=== PATIENT | female | born 2000 | race Caucasian/White ===

== ENCOUNTER 2022-12-27 14:56 | Emergency (ER) | payer OTHER ==
[~2022-12-27] VITALS: Ht 167.6 cm; Wt 70.8 kg
[2022-12-27] MEDS ORDERED: ONDANSETRON ODT8 MG PO (17:37)
== END 2022-12-27 17:51 | disposition home or self-care (01) ==
LOC: ER 14:56
DX: O21.0 Mild hyperemesis gravidarum (principal); Z3A.08 8 weeks gestation of pregnancy

== ENCOUNTER 2023-02-08 08:46 | Emergency (ER) | payer OTHER ==
[~2023-02-08] VITALS: Ht 167.6 cm; Wt 73.0 kg
[~2023-02-08 08:46] MED LIST: ONDANSETRON ODT8 MG PO
[2023-02-08] MEDS ORDERED: ONDANSETRON ODT4 MG PO (09:04)
== END 2023-02-08 15:01 | disposition home or self-care (01) ==
LOC: ER 08:46
DX: O21.8 Other vomiting complicating pregnancy (principal); Z3A.13 13 weeks gestation of pregnancy

== ENCOUNTER 2023-02-18 14:33 | Outpatient (CLI) | payer OTHER ==
[~2023-02-18 14:33] MED LIST changes: +ONDANSETRON ODT4 MG PO
== END 2023-02-18 15:45 | disposition home or self-care (01) ==
LOC: PRENATAL 14:33
PROVIDERS: ATTEND Obstetrics & Gynecology Maternal & Fetal Medicine
DX: O35.9XX0 Maternal care for (suspected) fetal abnormality and damage, unspecified, not applicable or unspecified (principal); O35.3XX0 Maternal care for (suspected) damage to fetus from viral disease in mother, not applicable or unspecified; Z3A.16 16 weeks gestation of pregnancy

== ENCOUNTER 2023-03-18 14:43 | Outpatient (CLI) | payer OTHER | END 2023-03-18 16:47 | disposition home or self-care (01) | LOC: PRENATAL 14:43 | PROVIDERS: ATTEND Obstetrics & Gynecology Maternal & Fetal Medicine | DX: O35.9XX0 Maternal care for (suspected) fetal abnormality and damage, unspecified, not applicable or unspecified (principal); O35.3XX0 Maternal care for (suspected) damage to fetus from viral disease in mother, not applicable or unspecified; Z3A.20 20 weeks gestation of pregnancy ==

== ENCOUNTER 2023-04-03 07:10 | Emergency (ER) | payer OTHER ==
[~2023-04-03] VITALS: Ht 152.4 cm; Wt 76.2 kg
[2023-04-03] MEDS ORDERED: ZITHROMAX500 MG PO (13:22)
== END 2023-04-03 13:39 | disposition home or self-care (01) ==
LOC: ER 07:10
DX: O21.9 Vomiting of pregnancy, unspecified (principal); Z3A.24 24 weeks gestation of pregnancy; R53.81 Other malaise; J06.9 Acute upper respiratory infection, unspecified; E16.1 Other hypoglycemia; Z20.822 Contact with and (suspected) exposure to COVID-19

== ENCOUNTER 2023-05-06 10:23 | Outpatient (CLI) | payer OTHER ==
[~2023-05-06 10:23] MED LIST changes: +ZITHROMAX500 MG PO
[2023-05-06] MEDS ORDERED: PRENATAL TABLE1 EAC1 PO (13:14)
[2023-05-06] MEDS ORDERED: BUPAP 50 MG-301 EACH PO (13:15)
== END 2023-05-07 10:30 | disposition home or self-care (01) ==
LOC: OBS/DEL 10:23
PROVIDERS: ATTEND Obstetrics & Gynecology
DX: O36.8120 Decreased fetal movements, second trimester, not applicable or unspecified (principal); O47.02 False labor before 37 completed weeks of gestation, second trimester; Z3A.27 27 weeks gestation of pregnancy; E16.1 Other hypoglycemia

== ENCOUNTER 2023-06-13 15:23 | Outpatient (CLI) | payer OTHER ==
[~2023-06-13 15:23] MED LIST changes: +BUPAP 50 MG-301 EACH PO; +PRENATAL TABLE1 EAC1 PO
== END 2023-06-13 16:59 | disposition home or self-care (01) ==
LOC: PRENATAL 15:23
PROVIDERS: ATTEND Obstetrics & Gynecology Maternal & Fetal Medicine
DX: O26.849 Uterine size-date discrepancy, unspecified trimester (principal); O36.8199 Decreased fetal movements, unspecified trimester, other fetus; O99.343 Other mental disorders complicating pregnancy, third trimester; Z3A.32 32 weeks gestation of pregnancy

== ENCOUNTER 2023-07-28 10:46 | Inpatient (IN) | payer OTHER ==
[~2023-07-28] VITALS: Ht 167.6 cm; Wt 3.6 kg
== END 2023-07-31 14:29 | disposition home or self-care (01) | DRG 788 ==
LOC: OBS/DEL 10:46 → OB/GYN 11:36 → LDR 11:36 → OB/GYN 21:49
PROVIDERS: Obstetrics & Gynecology; ADMIT Obstetrics & Gynecology; ATTEND Obstetrics & Gynecology
PROC: 3E033VJ Introduction of Other Hormone into Peripheral Vein, Percutaneous Approach (ICD-10-PCS; 2023-07-28)
PROC: 3E0P7VZ Introduction of Hormone into Female Reproductive, Via Natural or Artificial Opening (ICD-10-PCS; 2023-07-28)
PROC: 4A1HXCZ Monitoring of Products of Conception, Cardiac Rate, External Approach (ICD-10-PCS; 2023-07-28)
PROC: 10D00Z1 Extraction of Products of Conception, Low, Open Approach (ICD-10-PCS; principal; 2023-07-28 19:00)
DX: O61.0 Failed medical induction of labor (principal); O42.12 Full-term premature rupture of membranes, onset of labor more than 24 hours following rupture; Z3A.38 38 weeks gestation of pregnancy; Z37.0 Single live birth; Z20.822 Contact with and (suspected) exposure to COVID-19

== ENCOUNTER 2025-04-23 12:06 | Outpatient (CLI) | payer OTHER | END 2025-04-23 12:07 | disposition home or self-care (01) | LOC: PRENATAL 12:06 | PROVIDERS: ATTEND Obstetrics & Gynecology Maternal & Fetal Medicine | DX: O44.00 Complete placenta previa NOS or without hemorrhage, unspecified trimester (principal); Z3A.22 22 weeks gestation of pregnancy ==

== ENCOUNTER 2025-07-06 11:21 | Outpatient (CLI) | payer OTHER | END 2025-07-06 11:22 | disposition home or self-care (01) | LOC: PRENATAL 11:21 | PROVIDERS: ATTEND Obstetrics & Gynecology Maternal & Fetal Medicine | DX: O44.00 Complete placenta previa NOS or without hemorrhage, unspecified trimester (principal); Z3A.33 33 weeks gestation of pregnancy ==

== ENCOUNTER 2025-08-22 12:06 | Inpatient (IN) | payer OTHER ==
[~2025-08-22] VITALS: Ht 167.6 cm; Wt 81.2 kg
[2025-08-22 11:51] VITALS: BP 106/72
[2025-08-22] MEDS ORDERED: RINGERS SOLUTION,LACTATED 1,000 ML IV SCH ×2 (12:15→21:00)
[2025-08-22] MEDS ORDERED: CEFAZOLIN SODIUM 1,000 MG VIAL IV SCH (12:30)
[2025-08-22 13:17] LABS: URINE APPEARANCE Clear; URINE BILIRRUBIN Negative (NEGATIVE); URINE BLOOD Negative; URINE COLOR Yellow; URINE GLUCOSE Negative (NEGATIVE); URINE KETONE Negative (NEGATIVE); URINE LEUKOCYTE Negative; URINE NITRATE Negative; URINE PROTEIN Trace (NEGATIVE); URINE UROBILINOGEN 1.0 E.U./dl
[2025-08-22 13:18] LABS: BASO % 0.2 % (0.1-1.2); EOS # 0.03 (0.04-0.54); EOS % 0.3 % (0.7-7.0); LYMPH # 2.33 (1.18-3.74); LYMPH % 26.8 % (19.3-53.1); MEAN PLATELET VOLUME 10.20 fl (9.4-12.4); MONO # 0.49 (0.24-0.82); MONO % 5.6 % (4.7-12.5); NEUT # 5.78 (1.56-6.13); NEUT % 66.8 % (34.0-71.1); RED CELL DISTRIBUTION WIDTH 14.0 % (11.6-14.4)
[2025-08-22 13:21] LABS: URINE BACTERIA 1379.7 uL (0.0-1933); URINE EPITHELIAL CELLS 85.0 uL (0.0-38.8); URINE RBC 8.2 uL (0.0-20.8); URINE WBC 14.1 uL (0.0-23.2)
[2025-08-22 13:43] LABS: INR 1.03
[2025-08-22 13:48] LABS: URINE CAST 0.29 uL (0.0-1.40)
[2025-08-22 15:20] VITALS: BP 110/73; O2SAT 97
[2025-08-22] MEDS ORDERED: OXYTOCIN 10 UNITS/ML VIAL ONE (18:54)
[2025-08-22] MEDS ORDERED: ERYTHROMYCIN BASE OPHT 1GM EACH TUBE OP ONE (18:54)
[2025-08-22] MEDS ORDERED: KETOROLAC TROMETHAMINE 60 MG VIAL IM STA (20:53)
[2025-08-22] MEDS ORDERED: OXYTOCIN 1,000 ML IV SCH (21:00)
[2025-08-22] MEDS ORDERED: MORPHINE SULFATE 4 MG/ML CARTRIDGE IV PRN (21:00)
[2025-08-22] MEDS ORDERED: CHLORHEXIDINE GLUCONATE 120 ML BOTTLE TP SCH (21:00)
[2025-08-23 00:06] LABS: BASO % 0.1 % (0.1-1.2); EOS # 0.01 (0.04-0.54); EOS % 0.1 % (0.7-7.0); LYMPH # 1.32 (1.18-3.74); LYMPH % 12.6 % (19.3-53.1); MEAN PLATELET VOLUME 10.30 fl (9.4-12.4); MONO # 0.38 (0.24-0.82); MONO % 3.6 % (4.7-12.5); NEUT # 8.66 (1.56-6.13); NEUT % 82.9 % (34.0-71.1); RED CELL DISTRIBUTION WIDTH 14.2 % (11.6-14.4)
[2025-08-23] MEDS ORDERED: OXYTOCIN 10 UNITS/ML VIAL ONE (01:22)
[2025-08-23 01:57] VITALS: BP 103/53
[2025-08-23 08:00] VITALS: BP 102/62
[2025-08-23] MEDS ORDERED: OxyCODONE HCL 5 MG TABLET (ROXICODONE) PO PRN (09:00)
[2025-08-23] MEDS ORDERED: ACETAMINOPHEN 325 MG TABLET PO PRN (09:00)
[2025-08-23 17:14] VITALS: BP 114/79
[2025-08-23 21:28] VITALS: BP 114/79
[2025-08-24 00:11] VITALS: BP 114/77
[2025-08-24 08:14] VITALS: BP 119/81
[2025-08-24 13:05] VITALS: BP 119/76
[2025-08-24 16:24] VITALS: BP 115/81
[2025-08-25] VITALS: BP 107/68
[2025-08-25 08:06] VITALS: BP 123/82
[2025-08-25 13:34] VITALS: BP 107/68
== END 2025-08-25 18:49 | disposition home or self-care (01) | DRG 788 ==
LOC: LDR 12:06 → OB/GYN 12:06
PROVIDERS: ADMIT Obstetrics & Gynecology; ATTEND Obstetrics & Gynecology
PROC: 4A1HXCZ Monitoring of Products of Conception, Cardiac Rate, External Approach (ICD-10-PCS; 2025-08-22)
PROC: 10D00Z1 Extraction of Products of Conception, Low, Open Approach (ICD-10-PCS; principal; 2025-08-22 18:00)
DX: O34.211 Maternal care for low transverse scar from previous cesarean delivery (principal); Z3A.38 38 weeks gestation of pregnancy; Z37.0 Single live birth